=== PATIENT | male | born 1950 | race African-American/Black ===

== ENCOUNTER 2022-06-20 06:05 | Observation (INO) ==
[2022-06-14 10:25] LABS: Basophils % 0.5 % (0.0-0.8); Hemoglobin 12.6 GM/DL (14.0-18.0); Immature Granulocytes % 0.3 %; Immature Granulocytes Absolute 0.01 #; Lymphocytes # 2.1 10*3/uL (1.4-4.0); Lymphocytes % 52.3 % (21.2-54.2); Mean Corpuscular HGB Conc 32.3 GM/DL (32-36); Mean Corpuscular Volume 87.1 FL (87-102); Mean Platelet Volume 10.2 FL (9.6-12.0); Monocytes # 0.3 10*3/uL (0.11-0.8); Monocytes % 7.4 % (1.7-12.7); Neutrophils % 38.5 % (38.7-73.9); Platelet Count 183 T/CUMM (130-400); Red Blood Count 4.48 MC/CUMM (3.8-5.5); Red Cell Distribution Width 13.8 % (9.3-17.3); White Blood Count 3.9 T/CUMM (4-12)
[2022-06-14 10:44] LABS: Eosinophils 2 % (0-10); Lymphocytes 54 % (20-55); Total Cells Counted 100
[2022-06-14 10:45] LABS: Hypochromia Slight; Microcytosis Slight; Platelet Estimate Adequate
[2022-06-14 10:46] LABS: Atypical Lymphocytes Few
[2022-06-14 10:49] LABS: Alanine Aminotransferase 44 U/L (16-61); Albumin 3.6 G/DL (3.4-5.0); Alkaline Phosphatase 121 U/L (45-117); Aspartate Amino Transferase 26 U/L (0-37); Bilirubin,Total < 0.39 MG/DL (0.20-1.00); Blood Urea Nitrogen 18 MG/DL (7-18); Calcium 9.4 MG/DL (8.5-10.1); Carbon Dioxide 29 MMOL/L (21-32); Chloride 108 MMOL/L (98-107); Glucose 168 MG/DL (74-106); Osmolality,Calculated 284.4 MOS/KG (273-304); Potassium 4.2 MMOL/L (3.5-5.1); Sodium 140 MMOL/L (136-145); Total Protein 7.7 G/DL (6.4-8.2)
[~2022-06-20 06:05] MED LIST: cefTRIAXone 1,000 MG in SODIUM CHLORIDE 0.9% 100 ML IV ONE
[2022-06-20] MEDS ORDERED: ALVIMOPAN 12 MG CAPSULE ONE (06:12)
[2022-06-20] MEDS ORDERED: MIDAZOLAM 2 MG/2 ML VIAL ONE (06:21)
[2022-06-20] MEDS ORDERED: fentaNYL 100 MCG/2 ML VIAL ONE (06:21)
[2022-06-20] MEDS ORDERED: ONDANSETRON 4 MG/2 ML VIAL ONE (06:23)
[2022-06-20] MEDS ORDERED: SEVOFLURANE 1 UNIT/15 MINUTE INH ONE ×3 (06:23→08:58)
[2022-06-20] MEDS ORDERED: propofoL 200 MG/20 ML VIAL IV ONE (06:23)
[2022-06-20] MEDS ORDERED: LIDOCAINE 2% 5 ML VIAL ONE (06:23)
[2022-06-20] MEDS ORDERED: ROCURONIUM 50 MG/5 ML VIAL IV ONE ×2 (06:23→07:44)
[2022-06-20] MEDS ORDERED: DEXAMETHASONE 4 MG/1 ML VIAL ONE ×2 (06:23→06:33)
[2022-06-20] MEDS ORDERED: ALVIMOPAN 12 MG CAPSULE PO ONE (06:25)
[2022-06-20] MEDS ORDERED: FAMOTIDINE 20 MG TABLET PO ONE (06:30)
[2022-06-20] MEDS ORDERED: GABAPENTIN 400 MG CAPSULE PO ONE (06:30)
[2022-06-20] MEDS ORDERED: LACTATED RINGERS 1,000 ML IV SCH (06:30)
[2022-06-20] MEDS ORDERED: ACETAMINOPHEN 500 MG TABLET PO ONE (06:30)
[2022-06-20] MEDS ORDERED: BUPIVACAINE MPF 0.25% 30 ML VIAL ONE (06:32)
[2022-06-20] MEDS ORDERED: LIDOCAINE 1% 5 ML VIAL ONE (06:33)
[2022-06-20] MEDS ORDERED: ROPIVACAINE 0.5% 30 ML VIAL ONE (07:28)
[2022-06-20] MEDS ORDERED: NEOSTIGMINE 10 MG/10 ML VIAL ONE (09:03)
[2022-06-20] MEDS ORDERED: GLYCOPYRROLATE 0.4 MG/2 ML VIAL ONE (09:05)
[2022-06-20] MEDS ORDERED: LACTATED RINGERS 1,000 ML IV ONE (09:17)
[2022-06-20] MEDS ORDERED: GLUCAGON 1 MG VIAL IM PRN (09:29)
[2022-06-20] MEDS ORDERED: ONDANSETRON 4 MG/2 ML VIAL IV PRN ×2 (09:29→09:51)
[2022-06-20] MEDS ORDERED: DEXTROSE 10% 250 ML BAG IV PRN (09:29)
[2022-06-20] MEDS ORDERED: oxyCODONE/ACETAMINOPHEN 5-325 MG TABLET PO PRN (09:29)
[2022-06-20] MEDS ORDERED: PROMETHAZINE 25 MG/1 ML VIAL IM PRN (09:29)
[2022-06-20] MEDS ORDERED: diphenhydrAMINE 50 MG/1 ML VIAL IV PRN (09:51)
[2022-06-20] MEDS ORDERED: PROMETHAZINE INJ 25 MG in SODIUM CHLORIDE 0.9% 50 ML IV PRN (09:51)
[2022-06-20] MEDS ORDERED: MORPHINE 10 MG/1 ML VIAL IV PRN (09:51)
[2022-06-20 09:52] LABS: Bacteria,Urine Occasional /HPF (Few); Bilirubin,Urine Negative (Negative); Blood, Urine Trace mg/dL (Negative); Glucose,Urine (UA) Negative (Negative); Ketones,Urine Negative (Negative); Mucus,Urine Occasional /LPF (Occasional); Nitrite,Urine Negative (Negative); Protein,Urine Negative (Negative); RBC,Urine <1 /HPF (0-4); Urine Appearance Clear (Clear); Urine Color Yellow (Yellow); Urine Specific Gravity 1.025 (1.001-1.035); Urine Urobilinogen 0.2 eU/dL (<2.0)
[2022-06-20] MEDS: HYDROmorphone 1 MG/1 ML SYRINGE IV PRN ×3 (10:05→12:00)
[2022-06-20] MEDS: ACETAMINOPHEN 325 MG TABLET PO SCH ×3 (10:11→21:22)
[2022-06-20] MEDS: SODIUM CHLORIDE 0.9% 1,000 ML IV SCH ×2 (10:57→19:33)
[2022-06-20] MEDS: PANTOPRAZOLE 40 MG TABLET PO SCH (21:22)
[2022-06-20] MEDS: ALVIMOPAN 12 MG CAPSULE PO SCH (21:22)
[2022-06-21] MEDS: HYDROmorphone 1 MG/1 ML SYRINGE IV PRN (01:08)
[2022-06-21] MEDS: ACETAMINOPHEN 325 MG TABLET PO SCH ×3 (03:24→15:59)
[2022-06-21 03:31] LABS: Basophils % 0.3 % (0.0-0.8); Hematocrit 34.4 VOL% (42.0-52.0); Hemoglobin 10.9 GM/DL (14.0-18.0); Immature Granulocytes % 0.3 %; Immature Granulocytes Absolute 0.02 #; Lymphocytes # 1.6 10*3/uL (1.4-4.0); Lymphocytes % 22.5 % (21.2-54.2); Mean Corpuscular HGB Conc 31.7 GM/DL (32-36); Mean Corpuscular Volume 88.7 FL (87-102); Mean Platelet Volume 11.2 FL (9.6-12.0); Monocytes # 0.8 10*3/uL (0.11-0.8); Monocytes % 11.2 % (1.7-12.7); Neutrophils % 65.7 % (38.7-73.9); Platelet Count 188 T/CUMM (130-400); Red Blood Count 3.88 MC/CUMM (3.8-5.5); Red Cell Distribution Width 13.9 % (9.3-17.3); White Blood Count 6.9 T/CUMM (4-12)
[2022-06-21 03:47] LABS: Osmolality,Calculated 278.7 MOS/KG (273-304); Potassium 4.2 MMOL/L (3.5-5.1)
[2022-06-21] MEDS: SODIUM CHLORIDE 0.9% 1,000 ML IV SCH (05:09)
[2022-06-21] MEDS ORDERED: cefTRIAXone 1,000 MG in SODIUM CHLORIDE 0.9% 100 ML IV SCH (08:00)
[2022-06-21] MEDS ORDERED: DEXTROSE 50% 25 GM/50 ML VIAL IV PRN (08:09)
[2022-06-21] MEDS ORDERED: amLODIPine 5 MG TABLET PO SCH (09:00)
[2022-06-21] MEDS ORDERED: TAMSULOSIN 0.4 MG CAPSULE PO SCH (09:00)
[2022-06-21] MEDS: ALVIMOPAN 12 MG CAPSULE PO SCH (09:44)
[2022-06-21] MEDS: PANTOPRAZOLE 40 MG TABLET PO SCH (09:44)
[2022-06-21 12:22] VITALS: BP 121/65
== END 2022-06-21 15:50 | disposition home or self-care (01) ==
LOC: N.SDSINP 06:05 → INTOOBSV 06:05 → N.3E 10:21
PROVIDERS: ADMIT Surgery; ATTEND Surgery